=== PATIENT | male | born 1955 | race Caucasian/White ===

== ENCOUNTER → 2017-04-30 | Outpatient (CLI) | payer OTHER ==
[~2017-04-30] MED LIST: ACYC400 PO; ALBU90OI INH; ALPR1; AMIT75; AMOCLA875 PO; AMOX1XR PO; ATEN50 PO; ATENOLOL; ATOR10; BACI500TO BOTHEYES; CALCA500CH PO; CEPH500 PO; CHOLESTEROL MED; CLON.1; CLON.1 PO; CLON.2; CLON.5; CLON1 PO; CYCL10 PO; Ciprodex Otic7.5 ML BOTHEARS; ESCI10; FAMO20 PO; FAMO40 PO; FEXO180 PO; GABA600 PO; HYDACE10B; HYDACE5; HYDACE5 PO; LAVAP17G PO; LISI20; LORA1; LORA1 PO; LOSHYD; META800; META800 PO; METH10; METH10 PO; METH40; METPRE4DP PO; MIRT15; MIRT30 PO; NAPR220 PO; NAPR550 PO; NEOPOLHCSU RIGHTEAR; ONDA4 PO; OXYACE5T; OXYACE5T PO; OXYASA5T; OXYASA5T PO; OXYC20ER; OXYC5 PO; PANT40 PO; PROC10; PROM25 PO; PROMETHAZINE; RXHYDMOR2 PO; Roxicodone5 MG PO; SUCR1SU PO; TRAZ100; TRAZ100 PO; ZOLP10 PO; ZOLP5 PO; [UNRECOGNIZED DRUG - CODE]; [UNRECOGNIZED DRUG - REMARK]
[2017-04-30 11:07] LABS: BASOPHILS ABSOLUTE AUTO 0.05 K/mm3 (0.00-0.23); BASOPHILS PERCENT AUTO 1 % (0-2); EOSINOPHILS ABSOLUTE AUTO 0.11 K/mm3 (0.00-0.68); EOSINOPHILS PERCENT AUTO 1 % (0-6); Hematocrit 39.9 % (37.0-53.0); Hemoglobin 14.1 g/dL (13.5-17.5); IMMATURE GRAN ABSOLUTE AUTO 0.03 K/mm3 (0.00-0.10); IMMATURE GRAN PERCENT AUTO 0 % (0-1); LYMPHOCYTES ABSOLUTE AUTO 2.53 K/mm3 (0.84-5.20); LYMPHOCYTES PERCENT AUTO 32 % (21-46); MONOCYTES ABSOLUTE AUTO 0.59 K/mm3 (0.16-1.47); MONOCYTES PERCENT AUTO 7 % (4-13); Mean Corpuscular HGB 31.3 pg (26.0-34.0); Mean Corpuscular HGB Conc 35.3 g/dL (31.5-36.5); Mean Corpuscular Volume 89 fL (80-100); Mean Platelet Volume 9.2 fL (9.1-12.4); NEUTROPHILS ABSOLUTE AUTO 4.73 K/mm3 (1.96-9.15); NEUTROPHILS PERCENT AUTO 59 % (41-73); Platelet Count 176 K/mm3 (150-400); RDW Coefficient Variation 12.8 % (11.7-14.2); RDW Standard Deviation 41.4 fL (35.1-46.3); White Blood Cell Count 8.04 K/mm3 (4.00-11.30)
== END | disposition home or self-care (01) ==
LOC: LAB EV 11:03
PROVIDERS: Physician Assistant
DX: R10.84 Generalized abdominal pain (principal)
CPT/HCPCS: 85025

== ENCOUNTER → 2017-05-06 | Outpatient (CLI) | payer OTHER | LOC: LAB SHORT 07:59 → PLD 07:59 | DX: D10.5 Benign neoplasm of other parts of oropharynx (principal) | CPT/HCPCS: 88305 ==

== ENCOUNTER → 2017-08-26 | Outpatient (CLI) | payer OTHER ==
[~2017-08-26] MED LIST changes: -TRAZ100 PO
[2017-08-26 07:59] LABS: BASOPHILS ABSOLUTE AUTO 0.03 K/mm3 (0.00-0.23); BASOPHILS PERCENT AUTO 0 % (0-2); EOSINOPHILS PERCENT AUTO 1 % (0-6); Hematocrit 39.8 % (37.0-53.0); Hemoglobin 13.9 g/dL (13.5-17.5); IMMATURE GRAN ABSOLUTE AUTO 0.02 K/mm3 (0.00-0.10); IMMATURE GRAN PERCENT AUTO 0 % (0-1); LYMPHOCYTES ABSOLUTE AUTO 1.88 K/mm3 (0.84-5.20); LYMPHOCYTES PERCENT AUTO 23 % (21-46); MONOCYTES ABSOLUTE AUTO 0.46 K/mm3 (0.16-1.47); MONOCYTES PERCENT AUTO 6 % (4-13); Mean Corpuscular HGB 31.6 pg (26.0-34.0); Mean Corpuscular HGB Conc 34.9 g/dL (31.5-36.5); Mean Corpuscular Volume 91 fL (80-100); NEUTROPHILS ABSOLUTE AUTO 5.63 K/mm3 (1.96-9.15); NEUTROPHILS PERCENT AUTO 69 % (41-73); Platelet Count 168 K/mm3 (150-400); RDW Coefficient Variation 12.5 % (11.7-14.2); RDW Standard Deviation 40.8 fL (35.1-46.3); White Blood Cell Count 8.12 K/mm3 (4.00-11.30)
[2017-08-26 08:10] LABS: Alanine Aminotransfer (ALT/SGP 26 U/L (12-78); Albumin, Blood 3.7 g/dL (3.4-5.0); Albumin/Globulin Ratio 1.1 (0.8-1.8); Alk Phos 62 U/L (40-126); Anion Gap 6 mmol/L (6-16); Aspartate Aminotrans (AST/SGOT 22 U/L (12-37); Bilirubin, Total 0.5 mg/dL (0.1-1.0); Blood Urea Nitrogen 12 mg/dL (8-24); Bun/Creatinine Ratio 10.8 (12.0-20.0); CO2, Blood 31 mmol/L (21-32); Calcium, Blood 8.9 mg/dL (8.5-10.1); Chloride, Blood 104 mmol/L (98-108); Creatinine, Blood 1.11 mg/dL (0.60-1.20); Globulin, Blood 3.5 g/dL (2.2-4.0); Glomerular Filtration Rate >60 (60-); Glucose, Blood 106 mg/dL (70-99); Potassium, Blood 4.2 mmol/L (3.5-5.5); Sodium, Blood 141 mmol/L (136-145); Total Protein, Blood 7.2 g/dL (6.4-8.2)
== END | disposition home or self-care (01) ==
LOC: LAB EV 07:54 → LAB SHORT 07:54
PROVIDERS: Physician Assistant Medical
DX: R10.84 Generalized abdominal pain (principal)
CPT/HCPCS: 80053; 83690; 85025

== ENCOUNTER 2017-11-22 06:04 | Emergency (ER) | payer OTHER ==
[~2017-11-22] VITALS: Ht 175.3 cm; Wt 86.2 kg
[2017-11-22 07:01] LABS: BASOPHILS ABSOLUTE AUTO 0.06 K/mm3 (0.00-0.23); BASOPHILS PERCENT AUTO 1 % (0-2); EOSINOPHILS ABSOLUTE AUTO 0.24 K/mm3 (0.00-0.68); EOSINOPHILS PERCENT AUTO 3 % (0-6); Hematocrit 39.1 % (37.0-53.0); Hemoglobin 13.6 g/dL (13.5-17.5); IMMATURE GRAN ABSOLUTE AUTO 0.01 K/mm3 (0.00-0.10); IMMATURE GRAN PERCENT AUTO 0 % (0-1); LYMPHOCYTES ABSOLUTE AUTO 2.14 K/mm3 (0.84-5.20); LYMPHOCYTES PERCENT AUTO 30 % (21-46); MONOCYTES ABSOLUTE AUTO 0.65 K/mm3 (0.16-1.47); MONOCYTES PERCENT AUTO 9 % (4-13); Mean Corpuscular HGB 30.9 pg (26.0-34.0); Mean Corpuscular HGB Conc 34.8 g/dL (31.5-36.5); Mean Corpuscular Volume 89 fL (80-100); Mean Platelet Volume 8.6 fL (9.1-12.4); NEUTROPHILS ABSOLUTE AUTO 4.02 K/mm3 (1.96-9.15); NEUTROPHILS PERCENT AUTO 57 % (41-73); Platelet Count 155 K/mm3 (150-400); RDW Standard Deviation 38.8 fL (35.1-46.3); White Blood Cell Count 7.12 K/mm3 (4.00-11.30)
[2017-11-22 07:09] LABS: Alanine Aminotransfer (ALT/SGP 22 U/L (12-78); Albumin, Blood 3.6 g/dL (3.4-5.0); Albumin/Globulin Ratio 1.1 (0.8-1.8); Alk Phos 53 U/L (50-136); Anion Gap 6 mmol/L (6-16); Aspartate Aminotrans (AST/SGOT 21 U/L (12-37); Bilirubin, Total 0.2 mg/dL (0.1-1.0); Blood Urea Nitrogen 15 mg/dL (8-24); Bun/Creatinine Ratio 16.3 (12.0-20.0); CO2, Blood 29 mmol/L (21-32); Calcium, Blood 9.1 mg/dL (8.5-10.1); Chloride, Blood 105 mmol/L (98-108); Creatinine, Blood 0.92 mg/dL (0.60-1.20); Globulin, Blood 3.3 g/dL (2.2-4.0); Glomerular Filtration Rate >60 (60-); Glucose, Blood 122 mg/dL (70-99); Magnesium, Blood 1.8 mg/dL (1.6-2.4); Potassium, Blood 3.8 mmol/L (3.5-5.5); Sodium, Blood 140 mmol/L (136-145); Total Protein, Blood 6.9 g/dL (6.4-8.2)
[2017-11-22] MEDS ORDERED: TRAZ100 PO (07:42)
== END 2017-11-22 08:05 | disposition home or self-care (01) ==
LOC: ER 06:04
PROVIDERS: Emergency Medicine
DX: M54.5 Low back pain (principal); G89.29 Other chronic pain; G47.00 Insomnia, unspecified; F41.9 Anxiety disorder, unspecified; Z88.8 Allergy status to other drugs, medicaments and biological substances; Z88.1 Allergy status to other antibiotic agents; Z79.899 Other long term (current) drug therapy; F17.210 Nicotine dependence, cigarettes, uncomplicated
CPT/HCPCS: 36415; 80053; 83735; 85025; 96361; 96374; 99283-25; J1885; J7030

== ENCOUNTER 2018-07-10 14:52 | Inpatient (IN) | payer OTHER ==
[~2018-07-10] VITALS: Ht 175.3 cm; Wt 84.0 kg
[~2018-07-10 14:52] MED LIST changes: +GAVILAX17 GM PO; +LINZESS145 MCG PO; +TRAZ100 PO
[2018-07-10] MEDS ORDERED: PROM25 PO (15:18)
[2018-07-10] MEDS ORDERED: Prinivil10 MG (15:18)
[2018-07-10] MEDS ORDERED: SODCITSO PO (15:18)
[2018-07-10 16:59] LABS: BASOPHILS ABSOLUTE AUTO 0.05 K/mm3 (0.00-0.23); BASOPHILS PERCENT AUTO 0 % (0-2); EOSINOPHILS ABSOLUTE AUTO 0.03 K/mm3 (0.00-0.68); EOSINOPHILS PERCENT AUTO 0 % (0-6); Hematocrit 44.1 % (37.0-53.0); Hemoglobin 14.7 g/dL (13.5-17.5); IMMATURE GRAN ABSOLUTE AUTO 0.05 K/mm3 (0.00-0.10); IMMATURE GRAN PERCENT AUTO 0 % (0-1); LYMPHOCYTES PERCENT AUTO 13 % (21-46); MONOCYTES ABSOLUTE AUTO 0.98 K/mm3 (0.16-1.47); MONOCYTES PERCENT AUTO 7 % (4-13); Mean Corpuscular HGB 30.7 pg (26.0-34.0); Mean Corpuscular HGB Conc 33.3 g/dL (31.5-36.5); Mean Corpuscular Volume 92 fL (80-100); Mean Platelet Volume 9.7 fL (9.1-12.4); NEUTROPHILS ABSOLUTE AUTO 11.69 K/mm3 (1.96-9.15); NEUTROPHILS PERCENT AUTO 80 % (41-73); Platelet Count 193 K/mm3 (150-400); RDW Coefficient Variation 12.9 % (11.7-14.2); RDW Standard Deviation 43.7 fL (35.1-46.3); Red Blood Cell Count 4.79 M/mm3 (4.30-5.90)
[2018-07-10 17:07] LABS: Uric Acid, Blood 4.1 mg/dL (3.5-7.2)
[2018-07-10 17:10] LABS: Alanine Aminotransfer (ALT/SGP 23 U/L (12-78); Albumin, Blood 3.9 g/dL (3.4-5.0); Alk Phos 70 U/L (50-136); Anion Gap 5 mmol/L (6-16); Aspartate Aminotrans (AST/SGOT 20 U/L (12-37); Bilirubin, Total 0.6 mg/dL (0.1-1.0); Blood Urea Nitrogen 17 mg/dL (8-24); Bun/Creatinine Ratio 18.7 (12.0-20.0); CO2, Blood 30 mmol/L (21-32); Calcium, Blood 8.9 mg/dL (8.5-10.1); Chloride, Blood 105 mmol/L (98-108); Creatinine, Blood 0.91 mg/dL (0.60-1.20); Globulin, Blood 3.8 g/dL (2.2-4.0); Glomerular Filtration Rate >60 (60-); Glucose, Blood 107 mg/dL (70-99); Potassium, Blood 3.6 mmol/L (3.5-5.5); Sodium, Blood 140 mmol/L (136-145); Total Protein, Blood 7.7 g/dL (6.4-8.2)
[2018-07-10 17:22] LABS: Body Fluid Crystals NEG (NEGATIVE)
[2018-07-10 17:59] LABS: Appearance, Synovial Fluid Turbid (Clear); Color, Synovial Fluid Opaque (None-P Yel)
[2018-07-10 18:01] LABS: BODY FLUID RBC 0.009 (0-0); RBC Count, Synovial Fluid 9000 /mm3 (0-0); WBC Count, Synovial Fluid 91360 /mm3 (0-180)
[2018-07-10 18:28] LABS: Crystals, Synovial Fluid Not Seen (Not Seen); Monocytes/Macrophages, Synovia 14 % (0-65); Neutrophils, Synovial Fluid 86 % (0-24)
[2018-07-10] MEDS ORDERED: DOCU100 PO (19:02)
[2018-07-10] MEDS ORDERED: CYCL10 PO (20:22)
--- NOTE | 2018-07-11 05:11 | NUR ---
NOC SHIFT SUMMARY PT WAS ADMITTED THIS NIGHT FOR SEPTIC ARTHRITIS IN R WRIST. HE HAS BEEN PLEASANT AND COOPERATIVE WITH CARE. PAIN TREATED PER EMAR TO GOOD EFFECT. HE HAS SLEPT MOST OF NIGHT. DR FLOREZ WAS IN PT ROOM EARLY IN THE NIGHT AND WRAPPED THE AFFECTED WRIST. VSS. CURRENTLY APPEARS IN NO ACUTE DISTRESS. WILL CONTINUE TO MONITOR.
[2018-07-11 05:27] LABS: BASOPHILS ABSOLUTE AUTO 0.04 K/mm3 (0.00-0.23); BASOPHILS PERCENT AUTO 0 % (0-2); EOSINOPHILS ABSOLUTE AUTO 0.08 K/mm3 (0.00-0.68); EOSINOPHILS PERCENT AUTO 1 % (0-6); Hematocrit 39.5 % (37.0-53.0); Hemoglobin 13.2 g/dL (13.5-17.5); IMMATURE GRAN ABSOLUTE AUTO 0.03 K/mm3 (0.00-0.10); IMMATURE GRAN PERCENT AUTO 0 % (0-1); LYMPHOCYTES ABSOLUTE AUTO 2.18 K/mm3 (0.84-5.20); LYMPHOCYTES PERCENT AUTO 23 % (21-46); MONOCYTES ABSOLUTE AUTO 0.99 K/mm3 (0.16-1.47); MONOCYTES PERCENT AUTO 10 % (4-13); Mean Corpuscular HGB 30.6 pg (26.0-34.0); Mean Corpuscular HGB Conc 33.4 g/dL (31.5-36.5); Mean Corpuscular Volume 92 fL (80-100); NEUTROPHILS ABSOLUTE AUTO 6.32 K/mm3 (1.96-9.15); NEUTROPHILS PERCENT AUTO 66 % (41-73); Platelet Count 141 K/mm3 (150-400); RDW Coefficient Variation 12.9 % (11.7-14.2); RDW Standard Deviation 43.4 fL (35.1-46.3); Red Blood Cell Count 4.31 M/mm3 (4.30-5.90); White Blood Cell Count 9.64 K/mm3 (4.00-11.30)
[2018-07-11 05:49] LABS: Alanine Aminotransfer (ALT/SGP 17 U/L (12-78); Albumin, Blood 3.3 g/dL (3.4-5.0); Alk Phos 60 U/L (50-136); Anion Gap 4 mmol/L (6-16); Aspartate Aminotrans (AST/SGOT 15 U/L (12-37); Bilirubin, Total 0.9 mg/dL (0.1-1.0); Blood Urea Nitrogen 20 mg/dL (8-24); Bun/Creatinine Ratio 22.7 (12.0-20.0); CO2, Blood 30 mmol/L (21-32); Calcium, Blood 8.6 mg/dL (8.5-10.1); Chloride, Blood 107 mmol/L (98-108); Creatinine, Blood 0.88 mg/dL (0.60-1.20); Globulin, Blood 3.2 g/dL (2.2-4.0); Glomerular Filtration Rate >60 (60-); Glucose, Blood 93 mg/dL (70-99); Sodium, Blood 141 mmol/L (136-145); Total Protein, Blood 6.5 g/dL (6.4-8.2)
--- NOTE | 2018-07-11 10:58 | NUR ---
CALLED ORTHOPEDIC SURGEON TO CLARIFY HOLDING PT'S MORNING MEDICATIONS DUE TO AFTERNOON PROCEDURE TODAY. SURGEON ORDERED BLOOD PRESSURE, BOWEL CARE, AND HEPARIN MEDICATIONS HELD. I INFORMED HOSPITALIST OF SURGEON'S ORDERS. SURGEON WANTS PT NPO, EXCEPT FOR ICE CHIPS/MEDICATIONS UNTIL AFTER PROCEDURE. SURGEON ROUNDED ON PT. SURGEON GAVE PT EDUCATION REGARDING DRUG TOLERANCE AND PAIN TREATMENT LIMITATIONS (POTENTIAL TO AFFECT RESPIRATORY DRIVE).
--- NOTE | 2018-07-11 14:29 | NUR ---
into pacu as preop pt. awake/responsive, no c/o pain/nausea. npo, voided in room. 18 gauge in lt forearm w/lactated ringers infursing. all consents completed. pas on. smokes 1/2 ppd x15yrs. bs w/wheezing annie. a/a updraft.
--- NOTE | 2018-07-11 18:45 | NUR ---
SHIFT SUMMARY 63 YR OLD MALE. DNI (CPR AND MEDS OK). HAD AN IRRIGATION AND DEBRIDEMENT OF THE RT WRIST TODAY. TOLERATED THE PROCEDURE WELL. NOW ON CARDIAC DIET. SISTER KILO IS HEALTH CARE PROXY. [facility] PT. CHRONIC BACK PAIN. PT HAS BEEN TAKING PAIN MEDICINE AT HOME, SO HIS PAIN IS DIFFICULT TO MANAGE HERE DUE TO HIS INCREASED TOLERANCE. HE IS A&O X4, INDEPENDENT IN THE ROOM. WBC COUNTS ARE WITHIN NORMAL RANGE THIS MORNING. PT IS NOW MONITORED WITH CONTINUOUS PULSE OX. HE IS DISABLED, DAILY SMOKER.
--- NOTE | 2018-07-12 03:10 | NUR ---
spoke to oncall hospitalist regarding patient pain levels and req any suggestions she might have. patient requesting dilaudid 2-4 MG LIKE HE HAD YESTEREDAY
[2018-07-12 05:33] LABS: BASOPHILS ABSOLUTE AUTO 0.04 K/mm3 (0.00-0.23); BASOPHILS PERCENT AUTO 0 % (0-2); EOSINOPHILS ABSOLUTE AUTO 0.04 K/mm3 (0.00-0.68); EOSINOPHILS PERCENT AUTO 0 % (0-6); Hematocrit 35.7 % (37.0-53.0); Hemoglobin 12.1 g/dL (13.5-17.5); IMMATURE GRAN ABSOLUTE AUTO 0.03 K/mm3 (0.00-0.10); IMMATURE GRAN PERCENT AUTO 0 % (0-1); LYMPHOCYTES PERCENT AUTO 11 % (21-46); MONOCYTES ABSOLUTE AUTO 0.97 K/mm3 (0.16-1.47); MONOCYTES PERCENT AUTO 9 % (4-13); Mean Corpuscular HGB 30.7 pg (26.0-34.0); Mean Corpuscular HGB Conc 33.9 g/dL (31.5-36.5); Mean Corpuscular Volume 91 fL (80-100); Mean Platelet Volume 9.1 fL (9.1-12.4); NEUTROPHILS ABSOLUTE AUTO 8.18 K/mm3 (1.96-9.15); NEUTROPHILS PERCENT AUTO 79 % (41-73); Platelet Count 140 K/mm3 (150-400); RDW Coefficient Variation 12.6 % (11.7-14.2); Red Blood Cell Count 3.94 M/mm3 (4.30-5.90); White Blood Cell Count 10.36 K/mm3 (4.00-11.30)
[2018-07-12 05:51] LABS: Alanine Aminotransfer (ALT/SGP 17 U/L (12-78); Albumin, Blood 3.1 g/dL (3.4-5.0); Alk Phos 55 U/L (50-136); Anion Gap 4 mmol/L (6-16); Aspartate Aminotrans (AST/SGOT 15 U/L (12-37); Bilirubin, Total 0.5 mg/dL (0.1-1.0); Blood Urea Nitrogen 22 mg/dL (8-24); Bun/Creatinine Ratio 26.1 (12.0-20.0); CO2, Blood 27 mmol/L (21-32); CPK Creatine Kinase 167 U/L (39-308); Chloride, Blood 108 mmol/L (98-108); Creatinine, Blood 0.84 mg/dL (0.60-1.20); Globulin, Blood 3.2 g/dL (2.2-4.0); Glomerular Filtration Rate >60 (60-); Glucose, Blood 106 mg/dL (70-99); Magnesium, Blood 2.1 mg/dL (1.6-2.4); Phosphorus, Blood 2.3 mg/dL (2.5-4.9); Potassium, Blood 3.9 mmol/L (3.5-5.5); Sodium, Blood 139 mmol/L (136-145); Total Protein, Blood 6.3 g/dL (6.4-8.2)
[2018-07-12 14:37] LABS: Vancomycin, Trough 12.5 ug/mL (5.0-10.0)
--- NOTE | 2018-07-12 17:04 | NUR ---
Call back - Pt provided space to reflect on his life and the events of the previous night. Pt's spiritual pain explored. Pt valued relationship with late father. Pt verbalizes frustration with his pain. Pastoral assessment counselor congruent with what was shared was extended. Interventions appeared effective as pt voices gratitude. Verbal prayer was offered and pt states, "I feel better."
--- NOTE | 2018-07-12 18:23 | NUR ---
SHIFT SUMMARY: PT HAS AMBULATED THE HALLS UNASSISTED 3 TIMES THIS AFTERNOON. TOLERATING PO INTAKE. NEEDS FREQ REMINDERS TO ELEVATE AND ICE R WRIST. HE HAS REFUSED ARINA HOSE. TELE AND CONT PULSE OX D/C'D VSS. DRESSING TO R WRIST C/D/I. ABLE TO WIGGLE FINGERS. DENIES N/T TO HAND. WILL CTM UNTIL REPORT GIVEN TO NEXT RN.
--- NOTE | 2018-07-12 18:45 | NUR ---
PT IS NOT IN ROOM. UNABLE TO START 1800 ABX. WILL NOTIFY NAGI OLIVIA.
[2018-07-13 05:03] LABS: BASOPHILS ABSOLUTE AUTO 0.03 K/mm3 (0.00-0.23); BASOPHILS PERCENT AUTO 0 % (0-2); EOSINOPHILS ABSOLUTE AUTO 0.13 K/mm3 (0.00-0.68); EOSINOPHILS PERCENT AUTO 2 % (0-6); Hematocrit 32.1 % (37.0-53.0); Hemoglobin 10.6 g/dL (13.5-17.5); IMMATURE GRAN ABSOLUTE AUTO 0.03 K/mm3 (0.00-0.10); IMMATURE GRAN PERCENT AUTO 0 % (0-1); LYMPHOCYTES ABSOLUTE AUTO 1.37 K/mm3 (0.84-5.20); LYMPHOCYTES PERCENT AUTO 19 % (21-46); MONOCYTES ABSOLUTE AUTO 0.75 K/mm3 (0.16-1.47); MONOCYTES PERCENT AUTO 10 % (4-13); Mean Corpuscular HGB 30.6 pg (26.0-34.0); Mean Corpuscular Volume 93 fL (80-100); Mean Platelet Volume 9.6 fL (9.1-12.4); NEUTROPHILS ABSOLUTE AUTO 5.02 K/mm3 (1.96-9.15); NEUTROPHILS PERCENT AUTO 69 % (41-73); Platelet Count 123 K/mm3 (150-400); Red Blood Cell Count 3.46 M/mm3 (4.30-5.90); White Blood Cell Count 7.33 K/mm3 (4.00-11.30)
[2018-07-13 05:39] LABS: Alanine Aminotransfer (ALT/SGP 15 U/L (12-78); Albumin, Blood 2.7 g/dL (3.4-5.0); Albumin/Globulin Ratio 0.9 (0.8-1.8); Alk Phos 51 U/L (50-136); Anion Gap 3 mmol/L (6-16); Aspartate Aminotrans (AST/SGOT 13 U/L (12-37); Bilirubin, Total 0.4 mg/dL (0.1-1.0); Blood Urea Nitrogen 18 mg/dL (8-24); Bun/Creatinine Ratio 20.4 (12.0-20.0); CO2, Blood 27 mmol/L (21-32); Chloride, Blood 112 mmol/L (98-108); Creatinine, Blood 0.88 mg/dL (0.60-1.20); Glomerular Filtration Rate >60 (60-); Glucose, Blood 126 mg/dL (70-99); Potassium, Blood 3.8 mmol/L (3.5-5.5); Sodium, Blood 142 mmol/L (136-145); Total Protein, Blood 5.7 g/dL (6.4-8.2)
--- NOTE | 2018-07-13 15:59 | NUR ---
SUMMARY PT IS A/O X4, PLEASANT AFFECT. HE HAS BEEN UP IND, AMBULATING IN SEN INTERMITTANTLY, STEADY GAIT. S/P R HAND I&D, SITE IS BANDAGED & WRAPPED WITH YASMIN. FINGERS VISIBLE, APPEAR SOMEWHAT SWOLLEN, PT IS ABLE TO WIGGLE, STATE HE HAS SOME CHRONIC N/T 4TH & 5TH FINGERS OTHERWISE STATE GOOD FEELING. NO WOUND CARE ORDERS, PT & NOC RN STATE DR EDUARDO WILL BE IN TODAY FOR DRSG CHANGE. IV VANCO & ROCEPHIN CONTINUE. PT HAS BEEN MEDICATED FOR PAIN R HAND & CHR BACK/NECK PAIN, (PRN METHADONE, PERCOCET & DILAUDID) STATE EFFECTIVE RELIEF. THIS AM SBP 107, DR DAVIS ORDER NS @ 100 ML/HR. THIS AFTERNOON SBP 138, VSS.
--- NOTE | 2018-07-13 17:34 | NUR ---
DR EDUARDO IN FOR WOUND CARE R HAND, ORDER TO GIVE DILAUDID @ THIS TIME 1 HR EARLY. ORDER PICC LINE, SHOP TEACHER NOTIFIED, ORDER D/C RAMONAO.
[2018-07-14 05:10] LABS: BASOPHILS ABSOLUTE AUTO 0.03 K/mm3 (0.00-0.23); BASOPHILS PERCENT AUTO 0 % (0-2); EOSINOPHILS ABSOLUTE AUTO 0.21 K/mm3 (0.00-0.68); EOSINOPHILS PERCENT AUTO 3 % (0-6); Hematocrit 34.1 % (37.0-53.0); Hemoglobin 11.2 g/dL (13.5-17.5); IMMATURE GRAN ABSOLUTE AUTO 0.01 K/mm3 (0.00-0.10); IMMATURE GRAN PERCENT AUTO 0 % (0-1); LYMPHOCYTES ABSOLUTE AUTO 1.38 K/mm3 (0.84-5.20); LYMPHOCYTES PERCENT AUTO 20 % (21-46); MONOCYTES ABSOLUTE AUTO 0.59 K/mm3 (0.16-1.47); MONOCYTES PERCENT AUTO 9 % (4-13); Mean Corpuscular HGB 30.4 pg (26.0-34.0); Mean Corpuscular HGB Conc 32.8 g/dL (31.5-36.5); Mean Corpuscular Volume 92 fL (80-100); Mean Platelet Volume 9.5 fL (9.1-12.4); NEUTROPHILS ABSOLUTE AUTO 4.69 K/mm3 (1.96-9.15); NEUTROPHILS PERCENT AUTO 68 % (41-73); Platelet Count 136 K/mm3 (150-400); RDW Coefficient Variation 13.1 % (11.7-14.2); RDW Standard Deviation 44.1 fL (35.1-46.3); Red Blood Cell Count 3.69 M/mm3 (4.30-5.90); White Blood Cell Count 6.91 K/mm3 (4.00-11.30)
--- NOTE | 2018-07-14 05:23 | NUR ---
SHIFT SUMMARY: PT IS A&O X 4, INDEPENDENT IN RM. PT USES QUITE A BIT OF NARCOTICS, AND IS ON A PAIN CONTRACT c [facility]. PT RECIEVES METHADONE, OXYCODONE, AND DILAUDID TONIGHT FOR PAIN BACK AND WRIST/HAND. SITE IS WNL, NO REDNESS/SWELLING/WARMTH NOTED. NS RUNNING @ 100 ML/HR. VSS TONIGHT. PT C/O OF ABDOMEN PAIN THAT IS "BURNING" AND MAKES HIM NAUSEAS. ADMINISTERED PRN ZOFRAN c/o RELIEF. PT GIVEN [place] TEA, WHICH PROVIDES RELIEF. PT IS TO HAVE PICC LINE OR POWERGLIDE PLACEMENT TODAY AND THEN D/C HOME FOR OUTPATIENT ANTIBIOTICS X2 WEEKS AT [facility]. PT AWARE AND IN AGREEMENT c PLAN. WILL CONT TO MONITOR AND PROVIDE CARE UNTIL PRESUMED BY ONCOMING RN.
[2018-07-14 05:30] LABS: Anion Gap 3 mmol/L (6-16); Blood Urea Nitrogen 19 mg/dL (8-24); Bun/Creatinine Ratio 20.9 (12.0-20.0); CO2, Blood 25 mmol/L (21-32); Calcium, Blood 8.2 mg/dL (8.5-10.1); Chloride, Blood 114 mmol/L (98-108); Creatinine, Blood 0.91 mg/dL (0.60-1.20); Glomerular Filtration Rate >60 (60-); Glucose, Blood 99 mg/dL (70-99); Potassium, Blood 4.6 mmol/L (3.5-5.5); Sodium, Blood 142 mmol/L (136-145)
[2018-07-14] MEDS ORDERED: Rocephin 1g1 G/50 ML IV (13:09)
[2018-07-14] MEDS ORDERED: ZOLP5 PO (13:09)
--- NOTE | 2018-07-14 13:16 | NUR ---
PROCEDURE NURSE CHANGING WOUND DRESSING AT THIS TIME PER DR EDUARDO REQUEST. APT MADE WITH DR EDUARDO ON FRIDAY. [facility] APPTS MADE STARTING TOMORROW. AWAITING CALL BACK FROM DR RAMESH OFFICE [facility] WILL ONLY DO THREE TIMES A WEEK DRESSING CHANGES. IV ROCPHIN STARTED EARLY AT 1300.
--- NOTE | 2018-07-14 13:57 | NUR ---
DR RAMESH OFFICE CALLED BACK AND REPORTED PT CANNOT DISCHARGE HOME WITHOUT DAILY DRESSING CHANGES SET UP. SPOKE WITH NE BEJARANO WHO REPORTS [facility] CAN DO DAILY DRESSING CHANGE WITH IV ANTIBIOTICS UNTIL 07/21 WHEN PT CAN BE SEEN AT WOUND CLINIC. ORDERS FAXED TO [facility], PT HAS AN APPOINTMENT WITH DR EDUARDO 07/16 AT 1:45. POWERGLIDE PLACED PRIOR TO DISCHARGE AND SECURED WITH NETTING. AWAITING COMPLETION OF IV ANTIBITICS.
[2018-07-14 14:24] LABS: Vancomycin, Trough 9.3 ug/mL (5.0-10.0)
--- NOTE | 2018-07-14 14:27 | NUR ---
DISCHARGE INSTRUCTIONS REVIEWED WITH PT. POWERGLIDE LEFT IN PLACE. DRESSING CHANGED PRIOR TO DISCHARGE. PT TO BE AT [facility] TOMORROW AT 1400 FOR DRESSING CHANGE AND IV ANTIBIOTICS. PT AWAITING RIDE HOME FROM SISTER. PT REPORTS SISTER WILL BE ABLE TO TRANSPORT TO ALL APPOINTMENTS.
--- NOTE | 2018-07-14 15:55 | NUR ---
PT DISCHARGED HOME WITH SISTER AT 1516.
== END 2018-07-14 15:16 | disposition home or self-care (01) | DRG 872 ==
LOC: ER 14:52 → MEDS 14:53 → ER 20:02 → MEDS 20:06 → ENPENDDIS 07-14 09:06 → MEDS 07-14 15:16
PROVIDERS: Emergency Medicine; Hospitalist; Orthopaedic Surgery; Student in an Organized Health Care Education/Training Program; ADMIT Internal Medicine
PROC: 0R9 Upper Joints, Drainage (ICD-10-PCS; principal; 2018-07-11 12:00)
DX: A41.9 Sepsis, unspecified organism (principal); M00.9 Pyogenic arthritis, unspecified; G89.29 Other chronic pain; Z86.19 Personal history of other infectious and parasitic diseases; I95.2 Hypotension due to drugs; T40.605A Adverse effect of unspecified narcotics, initial encounter; F17.210 Nicotine dependence, cigarettes, uncomplicated; I10 Essential (primary) hypertension; F32.9 Major depressive disorder, single episode, unspecified; G47.33 Obstructive sleep apnea (adult) (pediatric); F41.9 Anxiety disorder, unspecified; Z66 Do not resuscitate; G62.9 Polyneuropathy, unspecified; M47.812 Spondylosis without myelopathy or radiculopathy, cervical region; M47.816 Spondylosis without myelopathy or radiculopathy, lumbar region; G47.00 Insomnia, unspecified
CPT/HCPCS: 20606; 36415; 73110; 73201; 80048; 80053; 80202; 82550; 83735; 84100; 84550; 85025; 85651; 86140; 87070; 87071; 87075; 87205; 89051; 89060; 94762; 96365-59; 96375-59; 96376-59; 99285-25; C1751; J0690; J0696; J1170; J1650; J1885; J2250; J2405; J2704; J3010; J3370; J7030; J7050; J7120; Q9967

== ENCOUNTER 2018-07-15 00:03 | Day surgery (SDC) | payer OTHER ==
[~2018-07-15 00:03] MED LIST changes: +DOCU100 PO; +Prinivil10 MG; +Rocephin 1g1 G/50 ML IV; +SODCITSO PO
--- NOTE | 2018-07-15 14:35 | NUR ---
WOUND CARE: PT WAS JUST D/C FROM HOSPITAL YESTERDAY. PT STATES HE IS SEEING DR. CHANDLER, AND THAT WILL BE DOING WOUND CARE July AND WE WILL START DOING WOUND CARE ON monday 07/17 HERE IN [facility] UNTIL PT SEE'S WOUND CARE CENTER ON July
== END 2018-07-15 14:41 | disposition home or self-care (01) ==
LOC: ATC 00:03
DX: M00.831 Arthritis due to other bacteria, right wrist (principal); I10 Essential (primary) hypertension; M19.90 Unspecified osteoarthritis, unspecified site; G47.33 Obstructive sleep apnea (adult) (pediatric); M47.812 Spondylosis without myelopathy or radiculopathy, cervical region; M47.816 Spondylosis without myelopathy or radiculopathy, lumbar region; F41.9 Anxiety disorder, unspecified; F32.9 Major depressive disorder, single episode, unspecified; F17.210 Nicotine dependence, cigarettes, uncomplicated; Z88.1 Allergy status to other antibiotic agents; G62.9 Polyneuropathy, unspecified
CPT/HCPCS: 96365; J0696

== ENCOUNTER 2018-07-16 00:17 | Day surgery (SDC) | payer OTHER | END 2018-07-16 15:28 | disposition home or self-care (01) | LOC: ATC 00:17 | DX: M00.831 Arthritis due to other bacteria, right wrist (principal); I10 Essential (primary) hypertension; M47.812 Spondylosis without myelopathy or radiculopathy, cervical region; M47.816 Spondylosis without myelopathy or radiculopathy, lumbar region; G47.33 Obstructive sleep apnea (adult) (pediatric); G62.9 Polyneuropathy, unspecified; F41.9 Anxiety disorder, unspecified; F17.210 Nicotine dependence, cigarettes, uncomplicated; F32.9 Major depressive disorder, single episode, unspecified; Z88.1 Allergy status to other antibiotic agents; Z88.8 Allergy status to other drugs, medicaments and biological substances; Z79.899 Other long term (current) drug therapy | CPT/HCPCS: 96365; J0696 ==

== ENCOUNTER 2018-07-18 14:03 | Day surgery (SDC) | payer OTHER | END 2018-07-18 22:55 | disposition home or self-care (01) | LOC: ATC 14:03 | DX: M00.831 Arthritis due to other bacteria, right wrist (principal); I10 Essential (primary) hypertension; F32.9 Major depressive disorder, single episode, unspecified; F41.9 Anxiety disorder, unspecified; M19.90 Unspecified osteoarthritis, unspecified site; G47.33 Obstructive sleep apnea (adult) (pediatric); F17.210 Nicotine dependence, cigarettes, uncomplicated; Z87.442 Personal history of urinary calculi; Z79.899 Other long term (current) drug therapy; Z88.1 Allergy status to other antibiotic agents | CPT/HCPCS: J0696 ==

== ENCOUNTER 2018-07-19 14:14 | Day surgery (SDC) | payer OTHER ==
--- NOTE | 2018-07-19 15:04 | NUR ---
PT REPORTS HE DOESNT WANT HIS DRESSING CHANGED TODAY, REPORTS ITS GOOD TODAY.
== END 2018-07-19 22:39 | disposition home or self-care (01) ==
LOC: ATC 14:14
DX: M00.831 Arthritis due to other bacteria, right wrist (principal); I10 Essential (primary) hypertension; F32.9 Major depressive disorder, single episode, unspecified; F41.9 Anxiety disorder, unspecified; M19.90 Unspecified osteoarthritis, unspecified site; G47.33 Obstructive sleep apnea (adult) (pediatric); G62.9 Polyneuropathy, unspecified; F17.210 Nicotine dependence, cigarettes, uncomplicated; Z87.442 Personal history of urinary calculi; Z79.899 Other long term (current) drug therapy; Z88.1 Allergy status to other antibiotic agents; Z88.8 Allergy status to other drugs, medicaments and biological substances
CPT/HCPCS: J0696

== ENCOUNTER 2018-07-21 00:11 | Day surgery (SDC) | payer OTHER | END 2018-07-21 14:45 | disposition home or self-care (01) | LOC: ATC 00:11 | DX: M00.831 Arthritis due to other bacteria, right wrist (principal); I10 Essential (primary) hypertension; F41.9 Anxiety disorder, unspecified; F32.9 Major depressive disorder, single episode, unspecified; G62.9 Polyneuropathy, unspecified; M19.90 Unspecified osteoarthritis, unspecified site; G47.33 Obstructive sleep apnea (adult) (pediatric); F17.210 Nicotine dependence, cigarettes, uncomplicated; Z87.442 Personal history of urinary calculi; Z79.899 Other long term (current) drug therapy; Z88.1 Allergy status to other antibiotic agents | CPT/HCPCS: 96365; 99211; J0696 ==

== ENCOUNTER 2018-07-22 00:25 | Day surgery (SDC) | payer OTHER | END 2018-07-22 14:40 | disposition home or self-care (01) | LOC: ATC 00:25 | DX: M00.831 Arthritis due to other bacteria, right wrist (principal); I10 Essential (primary) hypertension; M54.9 Dorsalgia, unspecified; G89.29 Other chronic pain; M47.812 Spondylosis without myelopathy or radiculopathy, cervical region; M47.816 Spondylosis without myelopathy or radiculopathy, lumbar region; Z88.0 Allergy status to penicillin; Z88.8 Allergy status to other drugs, medicaments and biological substances | CPT/HCPCS: 96365; 99211; J0696 ==

== ENCOUNTER 2018-07-23 00:05 | Day surgery (SDC) | payer OTHER | END 2018-07-23 15:00 | disposition home or self-care (01) | LOC: ATC 00:05 | DX: M00.831 Arthritis due to other bacteria, right wrist (principal); I10 Essential (primary) hypertension; F32.9 Major depressive disorder, single episode, unspecified; F41.9 Anxiety disorder, unspecified; M19.90 Unspecified osteoarthritis, unspecified site; G47.33 Obstructive sleep apnea (adult) (pediatric); F17.210 Nicotine dependence, cigarettes, uncomplicated; Z87.442 Personal history of urinary calculi; Z79.899 Other long term (current) drug therapy; Z88.1 Allergy status to other antibiotic agents | CPT/HCPCS: 96365; J0696 ==

== ENCOUNTER 2018-07-25 13:52 | Day surgery (SDC) | payer OTHER ==
--- NOTE | 2018-07-25 15:05 | NUR ---
PT DID NOT WANT WOUND CARE TODAY, DRESSING IS C/D/I.
== END 2018-07-26 22:47 | disposition home or self-care (01) ==
LOC: ATC 13:52
DX: M00.831 Arthritis due to other bacteria, right wrist (principal); I10 Essential (primary) hypertension; F32.9 Major depressive disorder, single episode, unspecified; F41.9 Anxiety disorder, unspecified; M19.90 Unspecified osteoarthritis, unspecified site; G47.33 Obstructive sleep apnea (adult) (pediatric); F17.210 Nicotine dependence, cigarettes, uncomplicated; Z87.442 Personal history of urinary calculi; Z79.899 Other long term (current) drug therapy; Z88.1 Allergy status to other antibiotic agents
CPT/HCPCS: J0696

== ENCOUNTER 2018-07-26 13:54 | Day surgery (SDC) | payer OTHER | END 2018-07-26 14:30 | disposition home or self-care (01) | LOC: ATC 13:54 | DX: M00.831 Arthritis due to other bacteria, right wrist (principal); I10 Essential (primary) hypertension; F32.9 Major depressive disorder, single episode, unspecified; F41.9 Anxiety disorder, unspecified; M19.90 Unspecified osteoarthritis, unspecified site; G47.33 Obstructive sleep apnea (adult) (pediatric); F17.210 Nicotine dependence, cigarettes, uncomplicated; Z87.442 Personal history of urinary calculi; Z79.899 Other long term (current) drug therapy; Z88.1 Allergy status to other antibiotic agents | CPT/HCPCS: 96365; 99211; J0696 ==

== ENCOUNTER 2018-07-28 00:32 | Day surgery (SDC) | payer OTHER ==
--- NOTE | 2018-07-28 16:32 | NUR ---
PTS LAST DAY TODAY, PT STATES THAT HE WILL BE DOING OWN W/C AT HOME SINCE IT IS NOT REQUIRING PACKING ANY LONGER. PT STATES THAT HE HAS APPT WITH THIS WEEK
== END 2018-07-28 22:41 | disposition home or self-care (01) ==
LOC: ATC 00:32
DX: M00.831 Arthritis due to other bacteria, right wrist (principal); I10 Essential (primary) hypertension; F32.9 Major depressive disorder, single episode, unspecified; F41.9 Anxiety disorder, unspecified; M19.90 Unspecified osteoarthritis, unspecified site; G47.33 Obstructive sleep apnea (adult) (pediatric); F17.210 Nicotine dependence, cigarettes, uncomplicated; Z87.442 Personal history of urinary calculi; Z79.899 Other long term (current) drug therapy; Z88.1 Allergy status to other antibiotic agents
CPT/HCPCS: 96365; J0696